=== PATIENT | female | born 2005 | race Two or more races ===

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

== ENCOUNTER 2023-07-28 19:42 | Emergency (ER) | payer BC, OTHER ==
[~2023-07-28] VITALS: Ht 160 cm; Wt 63.7 kg
[~2023-07-28 19:42] MED LIST changes: -MONT10TA4 PO; +MONT10TA97 PO
[2023-07-28 19:43] VITALS: TEMP 98.4; O2SAT 97
[2023-07-28 21:40] VITALS: BP 125/74
== END 2023-07-28 21:40 | disposition home or self-care (01) ==
LOC: M ED 19:42
DX: S93.602A Unspecified sprain of left foot, initial encounter (principal); J45.909 Unspecified asthma, uncomplicated; D64.9 Anemia, unspecified; X50.0XXA Overexertion from strenuous movement or load, initial encounter; Y92.019 Unspecified place in single-family (private) house as the place of occurrence of the external cause; Y93.89 Activity, other specified; Y99.9 Unspecified external cause status; Z79.52 Long term (current) use of systemic steroids; Z79.899 Other long term (current) drug therapy

== ENCOUNTER 2023-10-23 20:05 | Emergency (ER) | payer OTHER ==
[~2023-10-23] VITALS: Ht 165.1 cm; Wt 72.2 kg
[2023-10-23 22:10] VITALS: BP 124/73; TEMP 97.9; O2SAT 98
== END 2023-10-23 22:13 | disposition home or self-care (01) ==
LOC: M ED 20:05
DX: B34.8 Other viral infections of unspecified site (principal); J45.909 Unspecified asthma, uncomplicated; Z79.52 Long term (current) use of systemic steroids; Z79.899 Other long term (current) drug therapy

== ENCOUNTER 2024-06-23 17:37 | Emergency (ER) | payer OTHER ==
[~2024-06-23] VITALS: Ht 165.1 cm; Wt 70.5 kg
[2024-06-23] MEDS: ACETAMINOPHEN TAB 650MG DOSE (2X325MG) PO ONE (21:06)
[2024-06-23 22:16] VITALS: BP 103/67; TEMP 98.6; O2SAT 97
== END 2024-06-23 22:19 | disposition home or self-care (01) ==
LOC: M ED 17:37
DX: O9A.212 Injury, poisoning and certain other consequences of external causes complicating pregnancy, second trimester (principal); S92.515A Nondisplaced fracture of proximal phalanx of left lesser toe(s), initial encounter for closed fracture; W19.XXXA Unspecified fall, initial encounter; Y92.9 Unspecified place or not applicable; Y93.9 Activity, unspecified; Y99.9 Unspecified external cause status; O99.342 Other mental disorders complicating pregnancy, second trimester; O99.512 Diseases of the respiratory system complicating pregnancy, second trimester; Z3A.19 19 weeks gestation of pregnancy; Z79.899 Other long term (current) drug therapy

== ENCOUNTER → 2024-07-27 | Outpatient (CLI) | payer OTHER | LOC: M SOG 07:28 | PROVIDERS: ATTEND Physician Assistant | DX: M79.672 Pain in left foot (principal); Z53.9 Procedure and treatment not carried out, unspecified reason ==